=== PATIENT | male | born 1960 ===

== ENCOUNTER 2017-10-18 14:02 | Emergency (ER) | payer OTHER ==
[2017-10-18 14:11] VITALS: BP 154/81; PULSE 80; RESP 18; TEMP 98.2; O2SAT 98
--- NOTE | 2017-10-18 14:25 | ED PDOC ---
Lower Extremity Pain/Injury Time Seen by Provider: 10/18/17 14:16 Chief Complaint (Nursing): Lower Extremity Problem/Injury Chief Complaint (Provider): Left Leg Pain History Per: Patient History/Exam Limitations: no limitations Onset/Duration Of Symptoms: Other (x 4 weeks) Current Symptoms Are (Timing): Still Present Additional Complaint(s): Rhett is a 56 year old male who presents to the Emergency Department complaining of left leg pain for 4 weeks. Patient states it hurts when putting weight on it and when lying down. Patient initially believed the fan blowing on his left leg was causing pain. Denies trauma to left leg. Admits to drinking wine every day, but denies hypertension, liver problems, taking medications, smoking and substance abuse. D: [facility] Past Medical History Reviewed: Historical Data, Nursing Documentation, Vital Signs Vital Signs: Last Vital Signs Temp 98.2 F 10/18/17 14:07 Pulse 80 10/18/17 14:07 Resp 18 10/18/17 14:07 BP 154/81 H 10/18/17 14:07 Pulse Ox 98 10/18/17 14:07 - Medical History PMH: No Chronic Diseases - Surgical History Surgical History: No Surg Hx - Family History Family History: States: No Known Family Hx - Social History Current smoker - smoking cessation education provided: No Drugs: Denies - Home Medications Home Medications: Ambulatory Orders Medication Instructions Recorded Amoxicillin/Clavulanate [Augmentin 1 tab PO BID #14 tab 08/10/15 875 MG-125 MG] Tramadol Hydrochloride [Tramadol 50 mg PO Q6H PRN #15 tab 08/10/15 HCl] Methylprednisolone [Medrol Dose 4 mg PO DAILY #21 mg 10/18/17 Pack (21 tabs)] - Allergies Allergies/Adverse Reactions: Allergies Allergy/AdvReac Type Severity Reaction Status Date / Time aspirin Allergy SWELLING Verified 10/18/17 14:07 Review of Systems ROS Statement: Except As Marked, All Systems Reviewed And Found Negative Musculoskeletal: Positive for: Leg Pain (Left) Physical Exam - Reviewed Nursing Documentation Reviewed: Yes Vital Signs Reviewed: Yes - Physical Exam Appears: Positive for: Well, Non-toxic Head Exam: Positive for: ATRAUMATIC, NORMAL INSPECTION, NORMOCEPHALIC Skin: Negative for: Rash (noted on left leg) Eye Exam: Positive for: Normal appearance Neck: Positive for: Normal Respiratory: Positive for: Normal Breath Sounds. Negative for: Respiratory Distress Back: Negative for: Other (Non-Tender spine) Extremity: Positive for: Normal ROM, Other (Varicose veins noted anterior left thigh, ) Neurologic/Psych: Positive for: Alert, Oriented. Negative for: Other (Jean-Paul's sign) Comments: negative for: straight leg raise - Laboratory Results Result Diagrams: 10/18/17 14:20 10/18/17 14:20 - ECG O2 Sat by Pulse Oximetry: 98 (RA) Pulse Ox Interpretation: Normal - Progress ED Course And Treament: duplex left leg: neg for dvt Medical Decision Making Medical Decision Making: Time: 14:18 Plan: - BMP - Magnesium - CBC - Duplex Lower Extremity Vein Ultrasound Scribe Attestation: Documented by Rickie Otero, acting as a scribe for Jaron Berumen PA-C Provider Scribe Attestation: All medical record entries made by the Scribe were at my direction and personally dictated by me. I have reviewed the chart and agree that the record accurately reflects my personal performance of the history, physical exam, medical decision making, and the department course for this patient. I have also personally directed, reviewed, and agree with the discharge instructions and disposition. Disposition - Clinical Impression Clinical Impression: Leg pain, anterior - Patient ED Disposition Is Patient to be Admitted: No - Disposition Referrals: Minna Patino MD [Staff Provider] - Disposition: Routine/Home Disposition Time: 15:22 Condition: FAIR Prescriptions: Methylprednisolone [Medrol Dose Pack (21 tabs)] 4 mg PO DAILY #21 mg Instructions: Leg Pain (ED) Forms: [employer] (Australian) Print Language: AMHARIC
[2017-10-18 14:31] LABS: BASO # 0.1 K/uL (0.0-0.2); BASO % 1.3 % (0.0-2.0); EOS # 0.1 K/uL (0.0-0.7); EOS % 2.7 % (0.0-4.0); HEMATOCRIT 46.5 % (35.0-51.0); LYMPH # 1.1 K/uL (1.0-4.3); LYMPH % 26.7 % (20.0-40.0); MEAN CELL VOLUME 88.3 fl (80.0-94.0); MEAN CORPUSCULAR HGB CONC 33.9 g/dL (33.0-37.0); MONO # 0.5 K/uL (0.0-0.8); MONO % 11.3 % (0.0-10.0); NEUT # 2.4 K/uL (1.8-7.0); NRBC % 0.2 % (0.0-0.0); RED CELL DISTRIBUTION WIDTH 13.3 % (11.5-14.5); WHITE BLOOD COUNT 4.1 K/uL (4.8-10.8)
[2017-10-18 14:40] LABS: BLOOD UREA NITROGEN 22 mg/dl (9-20); CALCIUM 9.3 mg/dL (8.4-10.2); CARBON DIOXIDE 28 mmol/L (22-30); CHLORIDE 104 mmol/L (98-107); GFR AFRICAN-AMERICAN > 60; GLUCOSE,RANDOM 120 mg/dL (75-110); MAGNESIUM 2.1 MG/DL (1.6-2.3); POTASSIUM 4.8 MMOL/L (3.6-5.0); SODIUM 142 mmol/l (132-148)
--- NOTE | 2017-10-19 10:01 | US ---
HISTORY: r/o dvt left leg . PRIORS: None. FINDINGS: 2-D, color and duplex Doppler analysis of the lower extremity venous circulation using routine protocol from the femoral veins through the posterior tibial veins. Venous compressibility: Normal. Flow and augmentation patterns: Normal. Visualized veins upper third of calf: Normal. Diane cyst: None. IMPRESSION: No sonographic or Doppler evidence for DVT in left lower extremity.
== END 2017-10-18 15:32 | disposition home or self-care (01) ==
LOC: H.ER 14:02
DX: M79.605 Pain in left leg (principal)

== ENCOUNTER 2018-04-10 04:59 | Emergency (ER) | payer BC, OTHER ==
[2018-04-10 05:14] VITALS: BMI 33.0
[2018-04-10 05:20] VITALS: RESP 16
--- NOTE | 2018-04-10 06:31 | ED PDOC ---
HPI: Trauma/Fall - HPI Time Seen by Provider: 04/10/18 05:16 Chief Complaint (Nursing): Trauma Chief Complaint (Provider): Trauma History Per: Patient History/Exam Limitations: no limitations Onset/Duration Of Symptoms: Hrs Additional Complaint(s): 57 years old male presents to the ED with complaints of pain to his head after he fell in the bathroom prior to arrival. Patient reports he drank 2 bottles of wine and went to the bathroom where he experienced lightheadedness and fell. He admits losing of consciousness for about 30 minutes and woke up realizing he has hit his head. Patient denies any laceration , nausea or vomiting. PMD: Procedure,Nonphys Past Medical History Reviewed: Historical Data, Nursing Documentation, Vital Signs Vital Signs: Last Vital Signs Temp 98.6 F 04/10/18 05:14 Pulse 75 04/10/18 05:14 Resp 16 04/10/18 05:14 BP 142/79 04/10/18 05:14 Pulse Ox 96 04/10/18 05:14 - Medical History PMH: No Chronic Diseases - Surgical History Surgical History: No Surg Hx - Family History Family History: States: No Known Family Hx - Social History Current smoker - smoking cessation education provided: No Alcohol: < 2 Drinks/Day Drugs: Denies - Home Medications Home Medications: Ambulatory Orders Medication Instructions Recorded Amoxicillin/Clavulanate [Augmentin 1 tab PO BID #14 tab 08/10/15 875 MG-125 MG] Tramadol Hydrochloride [Tramadol 50 mg PO Q6H PRN #15 tab 08/10/15 HCl] Methylprednisolone [Medrol Dose 4 mg PO DAILY #21 mg 10/18/17 Pack (21 tabs)] - Allergies Allergies/Adverse Reactions: Allergies Allergy/AdvReac Type Severity Reaction Status Date / Time aspirin Allergy SWELLING Verified 10/18/17 14:07 Review of Systems ROS Statement: Except As Marked, All Systems Reviewed And Found Negative Gastrointestinal: Negative for: Nausea, Vomiting Musculoskeletal: Positive for: Other (Head pain) Physical Exam - Reviewed Nursing Documentation Reviewed: Yes Vital Signs Reviewed: Yes - Physical Exam Appears: Positive for: Non-toxic, No Acute Distress Head Exam: Positive for: NORMOCEPHALIC. Negative for: ATRAUMATIC (mild tenderness to occipital region) Skin: Positive for: Normal Color, Warm, Dry Eye Exam: Positive for: Normal appearance, EOMI, PERRL ENT: Positive for: Normal ENT Inspection Neck: Positive for: Normal, Painless ROM, Supple Cardiovascular/Chest: Positive for: Regular Rate, Rhythm. Negative for: Murmur Respiratory: Positive for: Normal Breath Sounds. Negative for: Respiratory Distress Gastrointestinal/Abdominal: Positive for: Normal Exam, Soft. Negative for: Tenderness Extremity: Positive for: Normal ROM. Negative for: Pedal Edema, Deformity Neurologic/Psych: Positive for: Alert, Oriented - ECG O2 Sat by Pulse Oximetry: 96 (RA) Pulse Ox Interpretation: Normal Medical Decision Making Medical Decision Making: Time: 05 Initial Impression: 57 years old male with head injury due to alcohol abuse. Initial Plan: --CT Head w/o contrast --EKG --Tylenol [address] Head shows no acute findings Time: 45 Upon reevaluation, patient reports improvement of head pain. He is stable for discharge and advised to use ice bags and take Tylenol as needed for pain. Scribe Attestation: Documented by Eliza Colon, acting as a scribe for August Zapata MD. Provider Scribe Attestation: All medical record entries made by the Scribe were at my direction and personally dictated by me. I have reviewed the chart and agree that the record accurately reflects my personal performance of the history, physical exam, medical decision making, and the department course for this patient. I have also personally directed, reviewed, and agree with the discharge instructions and disposition. Disposition - Clinical Impression Clinical Impression: Head injury, Alcohol intake above recommended sensible limits - Disposition Disposition: Routine/Home Disposition Time: 06:45 Condition: STABLE Instructions: Minor Head Injury Forms: [employer] (Egyptian) Print Language: BAHAMIAN
--- NOTE | 2018-04-10 06:37 | CT ---
EXAM: CT Head Without Intravenous Contrast CLINICAL HISTORY: 57 years old, male; Pain; Headache TECHNIQUE: Axial computed tomography images of the head/brain without intravenous contrast. All CT scans at this facility use one or more dose reduction techniques, viz.: automated exposure control; ma/kV adjustment per patient size (including targeted exams where dose is matched to indication; i.e. head); or iterative reconstruction technique. Coronal and sagittal reformatted images were created and reviewed. COMPARISON: No relevant prior studies available. FINDINGS: Brain: There is mild diffuse cerebral atrophy present, consistent with this patient's age. No hemorrhage. No significant white matter disease. Ventricles: The ventricular system demonstrates mild diffuse compensatory enlargement. Bones/joints: Unremarkable. No acute fracture. Soft tissues: Unremarkable. Sinuses: Unremarkable as visualized. No acute sinusitis. Mastoid air cells: Unremarkable as visualized. No mastoid effusion. IMPRESSION: No evidence of an acute intracranial abnormality.
[2018-04-10 06:53] VITALS: BP 137/79; PULSE 78; TEMP 98.1
[2018-04-11 04:10] VITALS: O2SAT 96
--- NOTE | 2018-04-12 06:42 | CARD ---
APPROVED REPORT EKG Measurement Heart [id number] LA [id number] <Conclusion> Normal sinus rhythm Voltage criteria for left ventricular hypertrophy Abnormal ECG
== END 2018-04-10 06:54 | disposition home or self-care (01) ==
LOC: H.ER 04:59
DX: F10.10 Alcohol abuse, uncomplicated (principal); S09.90XA Unspecified injury of head, initial encounter; W19.XXXA Unspecified fall, initial encounter; Y92.89 Other specified places as the place of occurrence of the external cause

== ENCOUNTER 2018-04-14 10:56 | Emergency (ER) | payer BC ==
[2018-04-14 10:59] VITALS: BMI 30.4
[2018-04-14 11:01] VITALS: BP 151/78; PULSE 66; RESP 20; TEMP 98.3; O2SAT 100
--- NOTE | 2018-04-14 11:51 | ED PDOC ---
HPI: General Adult Time Seen by Provider: 04/14/18 11:17 Chief Complaint (Nursing): Headache Chief Complaint (Provider): Neck pain History Per: Patient History/Exam Limitations: no limitations Onset/Duration Of Symptoms: Days Additional Complaint(s): Pt. fell Thursday when accidentally slipping in the bathroom. Hurt the back of his head and neck. No LOC. Had a negative ct head so dc. Has pain in the neck on both sides, not in the center so came to get a ct scan. No headaches. No numbness, tingles, weakness, chest pain, dyspnea. No vision changes. Past Medical History Reviewed: Nursing Documentation, Vital Signs Vital Signs: Last Vital Signs Temp 98.3 F 04/14/18 11:00 Pulse 66 04/14/18 11:00 Resp 20 04/14/18 11:00 BP 151/78 H 04/14/18 11:00 Pulse Ox 100 04/14/18 11:54 - Medical History PMH: No Chronic Diseases - Surgical History Surgical History: No Surg Hx - Family History Family History: States: Unknown Family Hx - Home Medications Home Medications: Ambulatory Orders Medication Instructions Recorded Amoxicillin/Clavulanate [Augmentin 1 tab PO BID #14 tab 08/10/15 875 MG-125 MG] Tramadol Hydrochloride [Tramadol 50 mg PO Q6H PRN #15 tab 08/10/15 HCl] Methylprednisolone [Medrol Dose 4 mg PO DAILY #21 mg 10/18/17 Pack (21 tabs)] - Allergies Allergies/Adverse Reactions: Allergies Allergy/AdvReac Type Severity Reaction Status Date / Time aspirin Allergy SWELLING Verified 10/18/17 14:07 Review of Systems ROS Statement: Except As Marked, All Systems Reviewed And Found Negative Musculoskeletal: Positive for: Neck Pain Physical Exam - Reviewed Nursing Documentation Reviewed: Yes Vital Signs Reviewed: Yes - Physical Exam Appears: Positive for: Non-toxic, No Acute Distress Head Exam: Positive for: ATRAUMATIC, NORMAL INSPECTION, NORMOCEPHALIC (nontender ) Skin: Positive for: Normal Color, Warm, DRY Eye Exam: Positive for: EOMI, Normal appearance, PERRL ENT: Positive for: Normal ENT Inspection Neck: Positive for: Normal, Supple. Negative for: Painless ROM (tender and pain on lateral neck b/l on movement) Cardiovascular/Chest: Positive for: Regular Rate, Rhythm. Negative for: Edema Respiratory: Positive for: CNT, Normal Breath Sounds Gastrointestinal/Abdominal: Positive for: Normal Exam, Soft. Negative for: Tenderness Back: Positive for: Normal Inspection. Negative for: L CVA Tenderness, R CVA Tenderness Extremity: Positive for: Normal ROM. Negative for: Tenderness, Pedal Edema Neurologic/Psych: Positive for: Alert, order manager II-XII, Oriented. Negative for: Motor/Sensory Deficits, Aphasia, Facial Droop - ECG O2 Sat by Pulse Oximetry: 100 Pulse Ox Interpretation: Normal - CT Scan/US ct Other Rad Studies (CT/US): Read By Radiologist Other Rad Interpretation: no acute - Progress ED Course And Treament: 1255: Stable. AAOx3. Pain free. Walking around in ER. Fu with pcp. Disposition - Clinical Impression Clinical Impression: Neck strain - Patient ED Disposition Is Patient to be Admitted: No Counseled Patient/Family Regarding: Studies Performed, Diagnosis, Need For Followup, Rx Given - Disposition Referrals: [facility] [Outside] - 04/15/18 Disposition: Routine/Home Disposition Time: 12:31 Condition: STABLE Additional Instructions: Return if not better in 3 days. Instructions: Cervical Muscle Strain (DC) Forms: [employer] (Hebrew), [facility] ED School/Work Excuse
--- NOTE | 2018-04-14 12:44 | CT ---
PROCEDURE: CT Cervical Spine without contrast HISTORY: neck pain COMPARISON: None available. TECHNIQUE: Axial computed tomography images were obtained of the cervical spine without the use of intravenous contrast. Coronal and sagittal reformatted images were created and reviewed. Radiation dose: Total exam DLP = 599.01 mGy-cm. This CT exam was performed using one or more of the following dose reduction techniques: Automated exposure control, adjustment of the mA and/or kV according to patient size, and/or use of iterative reconstruction technique. FINDINGS: VERTEBRAE: No fracture. Normal alignment. No destructive bony lesion. DISCS/SPINAL CANAL/NEURAL FORAMINA: Advanced spondylosis appreciate family anteriorly at C5-6 and C6-7 and minimally at C7-T1. C1-2 articulation is degenerated with the odontoid process. Intact nevertheless. Multilevel facet joint degenerative arthropathy appears diffuse but mild superiorly and moderate to severe inferiorly. Limited disc bulging is appreciated C3-4, C4-5 and C5-6 without significant central canal stenosis resulting. A mild disc osteophyte complex is appreciated C6-7 encroaching the ventral nerve roots without significant stenosis. Borderline degenerative neural foraminal stenosis bilateral C7 neural foramina. PARASPINAL SOFT TISSUES: Unremarkable. OTHER FINDINGS: Incidental well maxillary and sphenoid sinus disease identified. IMPRESSION: No acute fracture or spondylolisthesis identified. Degenerative spondylosis and facet arthropathy is appreciated primarily at mid and inferior cervical levels. Multilevel disc bulging without significant central stenosis. Borderline bilateral C7 root foraminal stenoses identified, degenerative.
== END 2018-04-14 13:12 | disposition home or self-care (01) ==
LOC: H.ER 10:56
DX: S16.1XXA Strain of muscle, fascia and tendon at neck level, initial encounter (principal); W19.XXXA Unspecified fall, initial encounter; Y92.89 Other specified places as the place of occurrence of the external cause; M48.02 Spinal stenosis, cervical region

== ENCOUNTER 2018-07-14 12:19 | Emergency (ER) | payer BC ==
[2018-07-14 12:19] VITALS: BMI 30.4
[2018-07-14 12:28] VITALS: TEMP 99
--- NOTE | 2018-07-14 13:05 | ED PDOC ---
HPI: Trauma/Fall - HPI Time Seen by Provider: 07/14/18 12:29 Chief Complaint (Nursing): Rib Injury Chief Complaint (Provider): Rib Injury History Per: Patient History/Exam Limitations: no limitations Onset/Duration Of Symptoms: Days (x6) Location Of Injury: Right: Chest Additional Complaint(s): 57 year old male presents to the ED complaining of right rib pain after slipping in the shower on Thursday. Patient reports pain is not improving and took Tylenol last night with mild relief. Patient denies SOB and difficulty eating or drinking. PMD: none - Fall Fall:Prior To Injury: Slipped Past Medical History Reviewed: Historical Data, Nursing Documentation, Vital Signs Vital Signs: Last Vital Signs Temp 99.0 F 07/14/18 12:22 Pulse 85 07/14/18 12:22 Resp 16 07/14/18 12:22 BP 143/89 07/14/18 12:22 Pulse Ox 98 07/14/18 13:20 - Medical History PMH: No Chronic Diseases - Surgical History Other surgeries: Right 2nd digit surgery - Family History Family History: States: Unknown Family Hx - Social History Current smoker - smoking cessation education provided: Yes ( < 10 Cigarettes Daily) Alcohol: Social Drugs: Denies - Home Medications Home Medications: Ambulatory Orders Medication Instructions Recorded Amoxicillin/Clavulanate [Augmentin 1 tab PO BID #14 tab 08/10/15 875 MG-125 MG] Tramadol Hydrochloride [Tramadol 50 mg PO Q6H PRN #15 tab 08/10/15 HCl] Methylprednisolone [Medrol Dose 4 mg PO DAILY #21 mg 10/18/17 Pack (21 tabs)] traMADol [Ultram] 50 mg PO Q6H PRN #15 tab 07/14/18 - Allergies Allergies/Adverse Reactions: Allergies Allergy/AdvReac Type Severity Reaction Status Date / Time aspirin Allergy SWELLING Verified 07/14/18 12:21 Review of Systems ROS Statement: Except As Marked, All Systems Reviewed And Found Negative Respiratory: Negative for: Shortness of Breath Musculoskeletal: Positive for: Other (Right Rib Pain) Physical Exam - Reviewed Nursing Documentation Reviewed: Yes Vital Signs Reviewed: Yes - Physical Exam Appears: Positive for: Non-toxic, No Acute Distress Head Exam: Positive for: ATRAUMATIC, NORMOCEPHALIC Skin: Positive for: Normal Color, Warm, Dry Eye Exam: Positive for: Normal appearance Neck: Positive for: Normal, Painless ROM Cardiovascular/Chest: Positive for: Regular Rate, Rhythm. Negative for: Murmur , Bradycardia, Tachycardia Respiratory: Positive for: Normal Breath Sounds. Negative for: Wheezing, Respiratory Distress Extremity: Positive for: Normal ROM Neurologic/Psych: Positive for: Alert, Oriented. Negative for: Motor/Sensory Deficits - ECG O2 Sat by Pulse Oximetry: 98 (RA) Pulse Ox Interpretation: Normal Medical Decision Making Medical Decision Making: Initial Impression: Right rib pain Initial Plan: Ribs and Chest X-ray Ultram 50mg PO No fracture seen in cXR. Pt reports feeling better on re-evaluation. Scribe Attestation: Documented by Mike Fulton acting as a scribe for Hafsa OLSON. Provider Scribe Attestation: All medical record entries made by the Scribe were at my direction and personally dictated by me. I have reviewed the chart and agree that the record accurately reflects my personal performance of the history, physical exam, medical decision making, and the department course for this patient. I have also personally directed, reviewed, and agree with the discharge instructions and disposition. Disposition - Clinical Impression Clinical Impression: Chest wall contusion - Patient ED Disposition Is Patient to be Admitted: No Counseled Patient/Family Regarding: Diagnosis, Need For Followup, Rx Given - Disposition Referrals: Oc Bone MD [Staff Provider] - [facility] [Outside] Disposition: Routine/Home Disposition Time: 14:18 Condition: STABLE Prescriptions: traMADol [Ultram] 50 mg PO Q6H PRN #15 tab PRN Reason: Pain Instructions: Bruised Rib (DC) Forms: [employer] (Turkish)
--- NOTE | 2018-07-14 14:14 | RAD ---
Date of service: 07/14/2018 PROCEDURE: Radiographs of the Chest and Right Ribs. HISTORY: Pain, slip and fall 3 days ago COMPARISON: None available. TECHNIQUE: Frontal radiograph of the chest and multiple oblique radiographs of the right ribs were obtained. FINDINGS: RIGHT RIBS: No acute fracture or focal lesion visualized. LUNGS: The lungs are well inflated and clear. PLEURA: No pneumothorax or pleural fluid. CARDIOVASCULAR: Normal sized heart. No pulmonary vascular congestion. OTHER FINDINGS: None. IMPRESSION: Clear lungs. No acute right rib fracture.
[2018-07-14 14:25] VITALS: BP 138/81; PULSE 72; RESP 15; O2SAT 97
== END 2018-07-14 14:25 | disposition home or self-care (01) ==
LOC: H.ER 12:19
DX: S20.219A Contusion of unspecified front wall of thorax, initial encounter (principal); F17.210 Nicotine dependence, cigarettes, uncomplicated; W01.0XXA Fall on same level from slipping, tripping and stumbling without subsequent striking against object, initial encounter; Y93.E1 Activity, personal bathing and showering